=== PATIENT | female | born 1955 | race Caucasian/White ===

== ENCOUNTER 2017-01-26 13:30 | Inpatient (IN) | payer SELFPAY ==
[~2017-01-26] VITALS: Ht 162.6 cm; Wt 62.6 kg
[2017-01-26 21:01] VITALS: BP 175/100; PULSE 85; RESP 16; TEMP 98.7; O2SAT 98
[2017-01-26] MEDS ORDERED: MAGNESIUM HYDROXIDE SUSP 30 ML CUP PO PRN (21:15)
[2017-01-26] MEDS ORDERED: ACETAMINOPHEN 325 MG TAB PO PRN (21:15)
[2017-01-26] MEDS ORDERED: ALUMINUM/MAGNESIUM/SIMETH 30 ML CUP PO PRN (21:15)
[2017-01-26] MEDS ORDERED: LORazepam 0.5 MG TAB age > 65 yrs PO PRN (21:15)
[2017-01-26] MEDS ORDERED: LORazepam 2 MG/ML VIAL IM PRN (21:15)
[2017-01-26] MEDS ORDERED: LORazepam 1 MG TAB PO PRN (21:15)
[2017-01-26] MEDS ORDERED: LORazepam 2 MG/ML VIAL - age > 65 yrs IM PRN (21:15)
[2017-01-27 05:47] VITALS: BP 143/68; PULSE 75; RESP 16; TEMP 97.2; O2SAT 99
[2017-01-27] MEDS: NICOTINE 21 MG/24 HR PATCH T-DERMAL SCH (09:00)
[2017-01-27] MEDS ORDERED: GEMF600T PO (09:15)
[2017-01-27] MEDS ORDERED: RISP.25 PO (09:15)
[2017-01-27] MEDS ORDERED: METO25TA3 PO (09:15)
[2017-01-27] MEDS ORDERED: XARE20TA PO (09:15)
[2017-01-27] MEDS ORDERED: MULT-142 PO (09:15)
[2017-01-27] MEDS ORDERED: FOLI1TAB6 PO (09:15)
[2017-01-27] MEDS: RIVAROXABAN 20 MG TAB PO SCH ×3 (11:15→16:41)
--- NOTE | 2017-01-27 11:41 | HHI.HP ---
Provisional Diagnosis Admission Date Jan 26, 2017 at 13:30 [place] I. Unspecified psychosis, r/o schizophrenia, r/o dementia [place] II. Deferred [place] III. Hypertension Certification of Person's Competence To Provide Express and Informed Consent I have personally examined Bianca Angeles , a person being served at [facility] on, Jan 27, 2017 11:24. Express and informed consent means consent voluntarily given in writing, by a competent person, after sufficient explanation and disclosure of the subject matter involved to enable the person to make a knowing and willful decision without any element of force, fraud, deceit, duress, or other form of constraint or coercion. This person is 18 years of age or older, is not now known to be incompetent to consent to treatment with a guardian advocate, and does not have a health care surrogate or proxy currently making medical treatment decisions. I have found this person to be one of the following: [] Competent to provide express and informed consent, as defined above, for voluntary admission to this facility and is competent to provide express and informed consent for treatment. He/she has the consistent capacity to make well reasoned, willful, and knowing decisions concerning his or her medical or mental health treatment. The person fully and consistently understands the purpose of the admission for examination/placement and is fully capable of personally exercising all rights assured under [place] [] Incompetent to provide express and informed consent to voluntary admission, and this is incompetent to provide express and informed consent to treatment. The person must be transferred to involuntary status and a petition for a guardian advocate filed with the Circuit Court. [X] Refusing to provide express and informed consent to voluntary admission but is competent to provide express and informed consent for treatment. The person must be discharged or transferred to involuntary status. Form shall be completed within 24 hours of a person's arrival at the receiving facility and filed in the clinical record of each person: 1. Admitted on a voluntary basis 2. Permitted to provide express and informed consent to his/her own treatment 3. Allowed to transfer from involuntary to voluntary status 4. Prior to permitting a person to consent to his or her own treatment after having been previously found incompetent to consent to treatment. History of Present Illness Capacity: Has Capacity HPI The patient is a 61-year-old woman, domiciled in a [facility], , with reported psychiatric history of schizophrenia and dementia, medical history of hypertension, who was transferred to psychiatry from [facility], what she was medically treated and cleared, under [place] due to Reported missing from [facility] when found was found in [facility] unresponsive and full of vomit , she had about 30 pills in her vomits. On psychiatric evaluation patient is found calm and cooperative, writing profusely in a notebook. When she was asked what is she writing she told me that is some personal information about her medical conditions. She says that given that she hasn't been diagnosed with cancer, she knows that she has a tumor in her intestines. She says that she can feel the tumor in her brain. Patient says that she doesn't need to be here and she wants to go home. However, the patient doesn't know what she is and she doesn't know the reason of her hospitalization. Patient is unable to clarify the circumstances described by police in [place]. Patient seems to be fixed in preoccupations with cancer in her intestines. She reports good mood , she denies anxiety, she denies suicidal and homicidal ideation, she denies visual and auditory hallucinations. However, patient is oddly related, seems to be internally preoccupied, laughing inappropriately very often. She is not agitated or aggressive. She does look paranoid and guarded. In terms of cognition patient is disoriented in time and place, she has a conserved language and repetition, but impaired recent and immediate recall, executive function and abstraction. . Mini-Mental is 21/30 Review of Systems Constitutional: DENIES: Diaphoretic episodes, Fatigue, Fever, Weight gain, Weight loss, Chills, Dizziness, Change in appetite, Night Sweats Endocrine: DENIES: Abnorml menstrual pattern, Heat/cold intolerance, Polydipsia , Polyuria, Polyphagia Eyes: DENIES: Blurred vision, Diplopia, Eye inflammation, Eye pain, Vision loss , Photosensitivity, Double Vision Ears, nose, mouth, throat: DENIES: Tinnitus, Hearing loss, Vertigo, Nasal discharge, Oral lesions, Throat pain, Hoarseness, Ear Pain, Running Nose, Epistaxis, Sinus Pain, Toothache, Odynophagia Respiratory: DENIES: Apneas, Cough, Snoring, Wheezing, Hemoptysis, Sputum production, Shortness of breath Musculoskeletal: DENIES: Joint pain, Muscle aches, Stiffness, Joint Swelling, Back pain, Neck pain Integumentary: DENIES: Abnormal pigmentation, Pruritus, Rash, Nail changes, Breast masses, Breast skin changes, Nipple discharge Hematologic/lymphatic: DENIES: Bruising, Lymphadenopathy Immunologic/allergic: DENIES: Eczema, Urticaria Neurologic: DENIES: Abnormal gait, Headache, Localized weakness, Paresthesias, Seizures, Speech Problems, Tremor, Poor Balance Psychiatric: DENIES: Anxiety, Confusion, Mood changes, Depression, Hallucinations, Agitation, Suicidal Ideation, Homicidal Ideation, Delusions Substance Abuse History Drugs/Alcohol past 12 months She denies the use of drugs and alcohol Past Family Social History Coded Allergies: No Known Allergies (Unverified , 01/26/17) Reported Medications Rivaroxaban (Xarelto)20 Mg Tab20 Mg PO DAILY Ref 0 01/27/17 Multiple Vitamins W/ Minerals (Multi Vitamin and Mineral)1 Tab Tab Po Daily 01/27/17 Folic Acid 1 Mg Tablet0.4 Mg PO DAILY 01/27/17 Metoprolol Tartrate 25 Mg Tab25 Mg PO BID #60 TAB Ref 0 01/27/17 Gemfibrozil 600 Mg [id number] Mg PO BIDAC #60 TAB Ref 0 Take 30 minutes prior to breakfast and dinner. 01/27/17 Risperidone (Risperdal)0.25 Mg Tab0.25 Mg PO BID #30 TAB Ref 0 01/27/17 Current Medications Medications (Trade) Dose Ordered Sig/Bridget Route Start Time Stop Time Status Last Admin (Ativan) 1 mg Q6H PRN PO 01/26/17 21:15 (Ativan Inj) 1 mg Q6H PRN IM 01/26/17 21:15 (Ativan) 0.5 mg Q12H PRN PO 01/26/17 21:15 (Ativan Inj) 0.5 mg Q12H PRN IM 01/26/17 21:15 (Tylenol) 650 mg Q4H PRN PO 01/26/17 21:15 (Milk Of Magnesia Liq) 30 ml DAILY PRN PO 01/26/17 21:15 (Mag-Al Plus Susp Liq) 30 ml Q6H PRN PO 01/26/17 21:15 (Habitrol 21 Mg Patch.24 Hr) 1 patch DAILY T-DERMAL 01/27/17 09:00 Miscellaneous Information 1 HS T-DERMAL 01/27/17 21:00 (Lopid) 600 mg BIDAC PO 01/27/17 11:15 (Lopressor) 25 mg BID PO 01/27/17 11:15 (risperDAL) 0.25 mg BID PO 01/27/17 11:15 (Xarelto) 20 mg DAILY PO 01/27/17 11:15 Family History She denies family psychiatric history Social History She says that she is for [facility], she lives in a [facility], she is , he has some college credits Patient's Strengths (min. 2) Verbal communication Physical Exam Physical examination no tremors, no agitation, no stiffness, no EPS, no gait disturbance Vital Signs Vital Signs Date Time Temp Pulse Resp B/P Pulse Ox O2 Delivery O2 Flow Rate FiO2 01/27/17 05:47 97.2 75 16 143/68 99 Mental Status Examination Appearance woman, she looks younger than his stated age, she superficially cooperative, poor historian, she is calm Speech: Hesitant, Slow Orientation: Person Memory: Impaired (describe) Thought Process: Loose Association, Tangential Thought Content: Bizarre thinking, Paranoid Language Fluent and spontaneous Fund of Knowledge Seems to be impaired due to cognitive impairment Hallucination Type: None Attention and Concentration: Good Suicidal Ideation: No Previous Suicide Attempts: No Homicidal Ideation: No Previous Homicide Attempts: No Judgment: WNL, Poor Affect: Good Affect if Inappropriate: Other (inappropriate laughing) Mood: Euthymic Motor Activity: Normal gait Assessment & Plan Problem List: (1) Unspecified psychosis Assessment & Plan: On psychiatric evaluation today patient is found calm, superficially cooperative, she is a very poor historian. She seems to be guarded, paranoid and disorganized, however no agitation or aggressive behavior reported. She also presents a persistent preoccupation with having cancer in her intestines interfering with her thoughts and her brain which seems to have a delusional component. Her Mini-Mental Status 21/30 which also suggests an underlying major cognitive impairment, but at the moment of this evaluation the etiology of current presentation is unclear. No collateral information have been able to be contacted so far. We will start the Risperdal 0.25 mg twice a day reported by her [facility]. Will consult medicine for underlying medical conditions. grocery worker intervention for collateral information, start working in a safe discharge plan. Extensive support, motivation and psychoeducation provided. ICD Code: F29 Assessment & Plan Estimated LOS: days Jigar Hansen MD Jan 27, 2017 11:41
[2017-01-27] MEDS: METOPROLOL TARTRATE 25 MG TAB PO SCH ×2 (12:23→21:52)
[2017-01-27] MEDS: risperiDONE 0.25 MG TAB PO SCH ×2 (12:24→21:52)
[2017-01-27 12:45] LABS: ANION GAP 7 MEQ/L (5-15); BICARBONATE 28.7 MEQ/L (21.0-32.0); BLOOD UREA NITROGEN 10 MG/DL (7-18); CHLORIDE 107 MEQ/L (98-107); GLOMERULAR FILTRATION RATE 88 ML/MIN (>89); POTASSIUM 4.5 MEQ/L (3.5-5.1); SODIUM (NA) 143 MEQ/L (136-145)
[2017-01-27 12:47] LABS: HDL CHOLESTEROL 52.4 MG/DL (40.0-60.0); LDL CHOLESTEROL 86 MG/DL (0-99)
[2017-01-27 13:06] LABS: HEMOGLOBIN A1b 1.5 %; HEMOGLOBIN Ao 86.1 %; HEMOGLOBIN LA1C 1.8 %; HEMOGLOBIN P3 3.3 %
[2017-01-27] MEDS: GEMFIBROZIL 600 MG TAB PO SCH ×2 (14:43→16:39)
--- NOTE | 2017-01-27 16:08 | PD.CONS ---
[facility] Requested By Dr. Hansen Reason for Consult Address underlying medical conditions Primary Care Physician Unknown Diagnoses: History of Present Illness Written by Bell Granado, acting as scribe for Dr. Johnson on 01/27/17 at 16:07. This is a 61-year-old female patient with past medical history which includes pulmonary embolism, colon cancer status post colectomy, cervical cancer status post hip hysterectomy, hypertension, hyperlipidemia. Patient is disheveled in appearance and tangential in speech. Patient appears to be an unreliable historian therefore information gathered from patient as well as prior computerized charting, including records from [facility]. Patient was reported missing from her blood glucose assisted living facility and she was found later in a [employer] parking lot patient was lethargic and covered vomit. The vomitus material had pills present patient had an give oxygen Tylenol near her. Patient's acetaminophen level at that admission at [facility] on January 26, 2000 17,000 with 84. Patient was treated there in PCU for acetaminophen toxicity and discharged to our inpatient psychiatric facility. We have now been consulted for assistance in management of underlying medical conditions. Patient appears preoccupied with the fact that she has cancer reporting that she was told that another hospital that she now has ovarian cancer. Review of records through with a CT scan done [facility] showing a large ovarian cyst and no definitive diagnosis of ovarian cancer. Patient's main concern is following up with her, "cancer doctor," which she follows with an [place] is unable to recall the name. Patient offers no other medical complaints at this time. Patient denies pain, nausea, vomiting, diarrhea, constipation, fevers, chills, shortness of breath or chest pain. Review of Systems ROS Limitations: Poor Historian Except as stated in HPI: all other systems reviewed are Neg Past Family Social History Allergies: Coded Allergies: No Known Allergies (Unverified , 01/26/17) Past Medical History pulmonary embolism, colon cancer status post colectomy, cervical cancer status post hip hysterectomy, hypertension, hyperlipidemia Past Surgical History Colectomy, hysterectomy, tonsillectomy Reported Medications Xarelto (Rivaroxaban) 20 Mg Tab 20 Mg PO DAILY Multi Vitamin and Mineral (Multiple Vitamins W/ Minerals) 1 Tab Tab PO DAILY Folic Acid 1 Mg Tablet 0.4 Mg PO DAILY Metoprolol Tartrate 25 Mg Tab 25 Mg PO BID Gemfibrozil 600 Mg Tab 600 Mg PO BIDAC Take 30 minutes prior to breakfast and dinner. Risperdal (Risperidone) 0.25 Mg Tab 0.25 Mg PO BID Active Ordered Medications Current Medications Medications (Trade) Dose Ordered Sig/Bridget Route Start Time Stop Time Status Last Admin (Ativan) 1 mg Q6H PRN PO 01/26/17 21:15 (Ativan Inj) 1 mg Q6H PRN IM 01/26/17 21:15 (Ativan) 0.5 mg Q12H PRN PO 01/26/17 21:15 (Ativan Inj) 0.5 mg Q12H PRN IM 01/26/17 21:15 (Tylenol) 650 mg Q4H PRN PO 01/26/17 21:15 (Milk Of Magnesia Liq) 30 ml DAILY PRN PO 01/26/17 21:15 (Mag-Al Plus Susp Liq) 30 ml Q6H PRN PO 01/26/17 21:15 (Habitrol 21 Mg Patch.24 Hr) 1 patch DAILY T-DERMAL 01/27/17 09:00 Miscellaneous Information 1 HS T-DERMAL 01/27/17 21:00 (Lopid) 600 mg BIDAC PO 01/27/17 11:15 01/27/17 14:43 (Lopressor) 25 mg BID PO 01/27/17 11:15 01/27/17 12:23 (risperDAL) 0.25 mg BID PO 01/27/17 11:15 01/27/17 12:24 (Xarelto) 20 mg DAILY PO 01/27/17 11:15 Family History Patient reports her father had brain cancer Social History Patient residing in an [facility] denies EtOH use tobacco use or illicit drug use Physical Exam Vital Signs Vital Signs Date Time Temp Pulse Resp B/P Pulse Ox O2 Delivery O2 Flow Rate FiO2 01/27/17 05:47 97.2 75 16 143/68 99 01/26/17 21:01 98.7 85 16 175/100 98 Physical Exam GENERAL: This is a well-nourished, well-developed patient, in no acute distress appears preoccupied with her, "ovarian cancer"- difficult to focus throughout the interview SKIN: No rashes, ecchymoses or lesions. Cool and dry. HEAD: Atraumatic. Normocephalic. No temporal or scalp tenderness. EYES: Extraocular motions intact. No scleral icterus. No injection or drainage. CARDIOVASCULAR: Regular rate and rhythm RESPIRATORY: Clear to auscultation. Breath sounds equal bilaterally. No wheezes , rales, or rhonchi. GASTROINTESTINAL: Abdomen soft, non-tender, nondistended. No guarding. MUSCULOSKELETAL: Extremities without clubbing, cyanosis, or edema. No joint tenderness, effusion, or edema noted. No calf tenderness. Negative Homans sign bilaterally. NEUROLOGICAL: Awake and alert. No focal deficits identified. Motor and sensory grossly within normal limits. Five out of 5 muscle strength in all muscle groups. Normal speech. Laboratory Laboratory Tests Test 01/27/17 11:58 Sodium Level 143 Potassium Level 4.5 Chloride Level 107 Carbon Dioxide Level 28.7 Anion Gap 7 Blood Urea Nitrogen 10 Creatinine 0.68 Estimat Glomerular Filtration 88 Rate Random Glucose 96 Hemoglobin A1c 5.1 Calcium Level 9.1 Triglycerides Level 244 Cholesterol Level 187 LDL Cholesterol 86 HDL Cholesterol 52.4 Cholesterol/HDL Ratio 3.56 Result Diagram: 01/27/17 1158 Assessment and Plan Problem List: (1) Unspecified psychosis ICD Code: F29 Status: Acute (2) HTN (hypertension) ICD Code: I10 Status: Acute Assessment and Plan This is a 61-year-old female patient with past medical history which includes pulmonary embolism, colon cancer status post colectomy, cervical cancer status post hip hysterectomy, hypertension, hyperlipidemia. Patient is disheveled in appearance and tangential in speech. Patient appears to be an unreliable historian therefore information gathered from patient as well as prior computerized charting. Patient was found on 01/25/[address] [place] [address] Fish oil treated for acetaminophen toxicity discharged to our inpatient psychiatric center. Depression/suicide attempt management per psychiatric team Overdose with acetaminophen toxicity- treated for [facility] and medically cleared Recent pulmonary embolism 10/2016 continue Xarelto home dose- patient to follow- up with outpatient PCP for further recommendations Hypertension continue patient's home metoprolol Monitor blood pressure trend- the need to add Norvasc if blood pressure remains elevated History of colon and cervical cancer follow-up with outpatient oncologist after discharge Large ovarian cyst on recent CT scan follow-up with outpatient [employer] DVT prophylaxis patient is on Xarelto Discussed with patient and nursing This note was transcribed by [email or web address] [Bell Granado]. I, Dr. Ana Lilia Johnson personally performed the history, physical exam, and medical decision making; and confirmed the accuracy of the information in the transcribed note. Authenticated by Dr. Ana Lilia Johnson on 01/27/17 at 1615. Bell Granado Jan 27, 2017 16:07 Ana Lilia Johnson MD Jan 27, 2017 16:24
[2017-01-27 18:00] VITALS: BP 197/78; PULSE 78; RESP 18; TEMP 97.8; O2SAT 98
[2017-01-27] MEDS ORDERED: cloNIDine HCL 0.2 MG TAB PO SCH (18:15)
[2017-01-27 20:50] VITALS: BP 121/56; PULSE 63
[2017-01-27] MEDS: REMOVE OLD NICOTINE PATCH T-DERMAL SCH (21:00)
[2017-01-28 05:25] VITALS: BP 117/67; PULSE 62; RESP 16; TEMP 97.6; O2SAT 97
[2017-01-28] MEDS: GEMFIBROZIL 600 MG TAB PO SCH ×2 (06:16→16:00)
[2017-01-28] MEDS: NICOTINE 21 MG/24 HR PATCH T-DERMAL SCH (08:56)
[2017-01-28] MEDS: METOPROLOL TARTRATE 25 MG TAB PO SCH ×2 (08:58→21:09)
[2017-01-28] MEDS: RIVAROXABAN 20 MG TAB PO SCH (08:58)
[2017-01-28] MEDS ORDERED: hydrALAZINE HCL 25 MG TAB PO PRN (09:00)
[2017-01-28] MEDS: risperiDONE 0.25 MG TAB PO SCH ×2 (09:00→21:09)
--- NOTE | 2017-01-28 14:42 | HHI.PYPN ---
Subjective Remarks Patient seen in her room with nurse Dia, and counselor Zainab, chart review, patient compliant medications. Patient continues markedly confused delusional with confusing statements related to her Tylenol overdose which she denies. Her assessment through [facility]. And her feelings that she is here because she has had multiple cancers including cancer of the ovaries , cancer of the cervix, cancer of the colon. Distended no significant verification for any of the above. She also stated she moved onto from [place] about 2 months ago and has been staying in an [facility] for about 6 weeks. She is vague about any mental health history and [place] focusing only on her somatic complaints. Patient initially seen by Dr. Huff we did the H&P and that her first opinion petition supporting Yonas chanel. Patient seen by me above. I concur with Dr. Huff patient does meet criteria for inpatient involuntary psychiatric hospitalization. Thus I'll cosign second opinion petition supporting Yonas chanel. I did review patient's medication will increase her Respinol from 0.25 mg twice a day to 1 mg twice a day Review of Systems Except as stated in HPI: all other systems reviewed are Neg Objective Alert: Yes [place]: Person, Place Mood: Calm, Oppositional (mildly) Affect: Euthymic Memory Intact: Comment (poor) Hallucinations: Tactile Delusions: Yes Delusion Type: Paranoid, Other (somatic) Suicidal: Ideation (deny) Homicidal: Ideation (deny) Insight/Judgment Poor Vitals/IOs Vital Signs Date Time Temp Pulse Resp B/P Pulse Ox O2 Delivery O2 Flow Rate FiO2 01/28/17 05:25 97.6 62 16 117/67 97 Assessment & Plan Problem List: (1) Unspecified psychosis ICD Code: F29 Assessment & Plan Estimated LOS: days patient quite delusional and psychotic, does meet criteria for involuntary psychiatric hospitalization thus will cosign second opinion. See medication adjustment above Justification for Cont. Inpt. Patient continues quite psychotic at this time would seriously decompensate if placed a lower level of care Discharge Planning To be determined Request HC Surrog/Guard Advoc?: No Raimundo Szymanski MD Jan 28, 2017 14:42
[2017-01-28] MEDS ORDERED: MAGNESIUM HYDROXIDE SUSP 30 ML CUP PO PRN (14:45)
[2017-01-28 15:48] VITALS: BP 152/69; PULSE 61; RESP 18; TEMP 98.7; O2SAT 99
[2017-01-28] MEDS ORDERED: ACETAMINOPHEN 325 MG TAB PO PRN (16:00)
[2017-01-28] MEDS ORDERED: ALUMINUM/MAGNESIUM/SIMETH 30 ML CUP PO PRN (16:00)
[2017-01-28] MEDS ORDERED: hydrOXYzine HCL 50 MG TAB PO PRN (16:00)
[2017-01-28] MEDS ORDERED: diphenhydrAMINE HCL 50 MG CAP PO PRN (16:00)
[2017-01-28 18:00] VITALS: BP 152/69; PULSE 61; RESP 18; TEMP 98.7; O2SAT 99
[2017-01-28 20:30] VITALS: BP 175/71; PULSE 66
[2017-01-28] MEDS: REMOVE OLD NICOTINE PATCH T-DERMAL SCH (21:00)
[2017-01-29 06:00] VITALS: BP 159/69; PULSE 68; RESP 18; TEMP 97.9; O2SAT 96
[2017-01-29] MEDS: GEMFIBROZIL 600 MG TAB PO SCH ×2 (06:41→16:00)
[2017-01-29] MEDS: METOPROLOL TARTRATE 25 MG TAB PO SCH ×2 (09:00→21:39)
[2017-01-29] MEDS: risperiDONE 0.25 MG TAB PO SCH ×2 (09:00→21:39)
[2017-01-29] MEDS: RIVAROXABAN 20 MG TAB PO SCH (09:00)
[2017-01-29] MEDS: NICOTINE 21 MG/24 HR PATCH T-DERMAL SCH (09:00)
[2017-01-29] MEDS: LISINOPRIL 20 MG TAB PO SCH (15:30)
[2017-01-29 18:00] VITALS: BP 137/65; PULSE 54; RESP 18; TEMP 98.6; O2SAT 96
[2017-01-29] MEDS: REMOVE OLD NICOTINE PATCH T-DERMAL SCH (21:00)
[2017-01-30] MEDS: GEMFIBROZIL 600 MG TAB PO SCH (06:12)
[2017-01-30] MEDS: risperiDONE 0.25 MG TAB PO SCH (08:46)
[2017-01-30] MEDS: RIVAROXABAN 20 MG TAB PO SCH (08:46)
[2017-01-30] MEDS: NICOTINE 21 MG/24 HR PATCH T-DERMAL SCH (08:46)
[2017-01-30] MEDS: METOPROLOL TARTRATE 25 MG TAB PO SCH (08:46)
[2017-01-30] MEDS: LISINOPRIL 20 MG TAB PO SCH (08:47)
[2017-01-30] MEDS ORDERED: XARE20TA PO (12:03)
[2017-01-30] MEDS ORDERED: GEMF600 PO (12:03)
[2017-01-30] MEDS ORDERED: METO25TA3 PO (12:03)
[2017-01-30] MEDS ORDERED: LISI-515 PO (12:03)
[2017-01-30] MEDS ORDERED: RISP.25 PO (12:03)
--- NOTE | 2017-01-30 12:10 | HHI.DS ---
Psychiatry Discharge Summary Inpatient Psychiatric care?: Yes Advance Directive: No Reason Not Provided: DENIES Mental Health AdvanceDirective: No Health Care Proxy: No Admission Admission Date Jan 26, 2017 at 13:30 Admission Diagnosis: (1) Other psychotic disorder not due to a substance or known physiological condition ICD Code: F28 Brief History The patient is a 61-year-old woman, domiciled in a [facility], , with reported psychiatric history of schizophrenia and dementia, medical history of hypertension, who was transferred to psychiatry from [facility], what she was medically treated and cleared, under [place] act due to Reported missing from [facility] when found was found in [facility] unresponsive and full of vomit , she had about 30 pills in her vomits. On psychiatric evaluation patient is found calm and cooperative, writing profusely in a notebook. When she was asked what is she writing she told me that is some personal information about her medical conditions. She says that given that she hasn't been diagnosed with cancer, she knows that she has a tumor in her intestines. She says that she can feel the tumor in her brain. Patient says that she doesn't need to be here and she wants to go home. However, the patient doesn't know what she is and she doesn't know the reason of her hospitalization. Patient is unable to clarify the circumstances described by police [place]. Patient seems to be fixed in preoccupations with cancer in her intestines. She reports good mood , she denies anxiety, she denies suicidal and homicidal ideation, she denies visual and auditory hallucinations. However, patient is oddly related, seems to be internally preoccupied, laughing inappropriately very often. She is not agitated or aggressive. She does look paranoid and guarded. In terms of cognition patient is disoriented in time and place, she has a conserved language and repetition, but impaired recent and immediate recall, executive function and abstraction. . Mini-Mental is 21/30 Tobacco Use In Past 30 Days: No Tobacco Past 30 Days Alcohol Use: Never Hospital Course Patient's showed no behavioral issues through her course in the hospital. She show compliance with medication from day 1 the some isolation noted but no behavioral issues. Her delusional ideation softening, she denies suicidality homicidality voices or visions. She continues to show good behavior today, there is a bed available today back in her assisted. At this time I feel patient has reached maximum benefit of this hospitalization thus will be discharged to her assisted, family home. With Rx times a month, follow-up Ayden chanel Results Blood Pressure 137 / 65 Vital Signs Date Time Temp Pulse Resp B/P Pulse Ox O2 Delivery O2 Flow Rate FiO2 01/29/17 18:00 98.6 54 18 137/65 96 Laboratory Results Test 01/27/17 11:58 Hemoglobin A1c 5.1 % (4.3-6.0) Triglycerides Level 244 MG/DL (42-150) Cholesterol Level 187 MG/DL (120-200) LDL Cholesterol 86 MG/DL (0-99) HDL Cholesterol 52.4 MG/DL (40.0-60.0) Summary of Procedures None done Pending results at discharge: No Medications # of Antipsychotic meds at D/C: 1 Approp Antipsych med options 1 - Minimum of three failed multiple trials of monotherapy. 2 - Documented plan to taper to monotherapy due to previous use of multiple meds OR cross-taper in progress at D/C. 3 - Documentation of augmentation of Clozapine. 4 - Justification other than those listed in allowable values 1-3, document here : Discharge Discharge Date: Jan 30, 2017 Discharge Diagnosis: (1) Other psychotic disorder not due to a substance or known physiological condition Diagnosis: Principal ICD Code: F28 Mental Status Exam at Disch Alert oriented thin slender white female sitting, behavioral. She is normal active. Mood is euthymic to somewhat intense with slight increase in the range and intensity of her affect. Speech rate and rhythm are slightly increased is mildly tangential, there are no auditory or visual hallucinations. No delusions. Insight and judgment is poor. Cognition grossly intact. Pt Condition on Discharge: Stable Discharge Disposition: [facility] Discharge Instructions Diet Instructions: As Tolerated, No Restrictions Activities you can perform: Regular-No Restrictions Scheduled Appointment: Ayden Chanel Appointment Date: Feb 01, 2017 Appointment Time: 7:30 Discharge Time > 30 minutes Discharge/Advance Care Plan Health Problems: (1) Unspecified psychosis Goals to promote your health * To prevent worsening of your condition and complications * To maintain your health at the optimal level Directions to meet your goals Take your medications as prescribed Follow your dietary instruction Follow activity as directed Keep your appointments as scheduled Take your immunizations and boosters as scheduled If your symptoms worsen call your PCP, if no PCP go to Urgent Care Center or Emergency Room For 28/01 questions related to your inpatient stay or results of tests pending at discharge, please contact Dr. Raimundo Szymanski at Smoking is Dangerous to Your Health. Avoid second hand smoking Raimundo Szymanski MD Jan 30, 2017 12:10
--- NOTE | 2017-01-30 17:39 | HHI.PR ---
Subjective Remarks Late entry. The patient was seen earlier today. The patient denies having any headache , change in vision, motor deficit. Her BP is better controlled with lisinopril. Patient wants to go home. Discussed meds and follow up as discharge. Objective Vitals Vital Signs Date Time Temp Pulse Resp B/P Pulse Ox O2 Delivery O2 Flow Rate FiO2 01/29/17 18:00 98.6 54 18 137/65 96 I/O 01/29/17 01/29/17 01/29/17 01/30/17 01/30/17 01/30/17 06:59 14:59 22:59 06:59 14:59 22:59 Intake Total 240 ml Balance 240 ml Intake Oral 240 ml Result Diagram: 01/27/17 1158 Objective Remarks GENERAL: This is a well-nourished, well-developed patient, in no acute distress appears preoccupied with her, "ovarian cancer"- difficult to focus throughout the interview SKIN: No rashes, ecchymoses or lesions. Cool and dry. HEAD: Atraumatic. Normocephalic. No temporal or scalp tenderness. EYES: Extraocular motions intact. No scleral icterus. No injection or drainage. CARDIOVASCULAR: Regular rate and rhythm RESPIRATORY: Clear to auscultation. Breath sounds equal bilaterally. No wheezes , rales, or rhonchi. GASTROINTESTINAL: Abdomen soft, non-tender, nondistended. No guarding. MUSCULOSKELETAL: Extremities without clubbing, cyanosis, or edema. No joint tenderness, effusion, or edema noted. No calf tenderness. Negative Homans sign bilaterally. NEUROLOGICAL: Awake and alert. No focal deficits identified. Motor and sensory grossly within normal limits. Five out of 5 muscle strength in all muscle groups. Normal speech. A/P Problem List: (1) Unspecified psychosis ICD Code: F29 Status: Acute (2) HTN (hypertension) ICD Code: I10 Status: Acute Assessment and Plan This is a 61-year-old female patient with past medical history which includes pulmonary embolism, colon cancer status post colectomy, cervical cancer status post hip hysterectomy, hypertension, hyperlipidemia. Patient is disheveled in appearance and tangential in speech. Patient appears to be an unreliable historian therefore information gathered from patient as well as prior computerized charting. Patient was found on 01/25/[address] [place] [address] Fish oil treated for acetaminophen toxicity discharged to our inpatient psychiatric center. Hypertension uncontrolled. Continue patient's home metoprolol. Added lisinopril , increased dose to 20 mg po daily as BP was uncontrolled. BP better controlled now. Monitor blood pressure can be DC on lisinopril, to f/w as OP with PCP Depression/suicide attempt management per psychiatric team Overdose with acetaminophen toxicity- treated for [facility] and medically cleared Recent pulmonary embolism 10/2016 continue Xarelto home dose- patient to follow- up with outpatient PCP for further recommendations History of colon and cervical cancer follow-up with outpatient oncologist after discharge Large ovarian cyst on recent CT scan follow-up with outpatient [employer] DVT prophylaxis patient is on Xarelto Discussed with patient and nurse Plan to discharge home today. Can discharge on lisinopril 20 mg po daily ( increased dose), continue home meds . Patient to follow \\up as OP with her PCP Balbina Blackwood MD Jan 30, 2017 17:39
--- NOTE | 2017-01-31 09:51 | HHI.PYPN ---
Subjective Remarks This is a late entry rest note. Patient was seen by me on 01/29/17 in the late afternoon. At that time patient was calm cooperative with me, was compliant with medications. There are no significant behavioral problems noted. Her delusions were softening. At that time I felt patient needed further observation, and assessment of her medications. She did denies suicidality or homicidality at that time. At that time I recommended continuation of care no change Review of Systems Except as stated in HPI: all other systems reviewed are Neg Objective Alert: Yes [place]: Person, Place Mood: Calm, Oppositional (mildly) Affect: Euthymic Memory Intact: Comment (poor) Hallucinations: Tactile Delusions: Yes Delusion Type: Paranoid, Other (somatic) Suicidal: Ideation (deny) Homicidal: Ideation (deny) Insight/Judgment Poor Vitals/IOs Vital Signs Date Time Temp Pulse Resp B/P Pulse Ox O2 Delivery O2 Flow Rate FiO2 01/29/17 18:00 98.6 54 18 137/65 96 Intake and Output 01/30/17 01/30/17 01/30/17 07:59 15:59 23:59 Intake Total 240 ml Balance 240 ml Assessment & Plan Problem List: (1) Unspecified psychosis ICD Code: F29 Assessment & Plan Estimated LOS: days patient showed no behavioral problems, denying suicidality denying voices. Some vague subtle ideation. However she is calm and pleasant with me Justification for Cont. Inpt. A chemical patient needed further care and assessment to determine her ability to reside at a lower level of care Discharge Planning To be determined Request HC Surrog/Guard Advoc?: No Raimundo Szymanski MD Jan 31, 2017 09:50
== END 2017-01-30 14:20 | DRG 885 ==
LOC: H270 13:30 → H260 01-27 15:05
PROVIDERS: ADMIT Psychiatry & Neurology Psychiatry; ATTEND Psychiatry & Neurology Psychiatry
DX: F28 Other psychotic disorder not due to a substance or known physiological condition (principal); I10 Essential (primary) hypertension; E78.5 Hyperlipidemia, unspecified; Z86.711 Personal history of pulmonary embolism; Z91.5 Personal history of self-harm
CPT/HCPCS: 80048; 80061; 83036